=== PATIENT | female | born 1965 | race Caucasian/White ===

== ENCOUNTER 2017-05-05 15:10 | Emergency (ER) | payer BC ==
[~2017-05-05] VITALS: Ht 165.1 cm; Wt 145.0 kg
[2017-05-05] MEDS ORDERED: HYDROmorphone 1 mg/ml syringe IM ONE (15:25)
[2017-05-05] MEDS ORDERED: propofol 10mg/ml 20ml vial IV ONE (15:55)
[2017-05-05] MEDS ORDERED: HYDROmorphone inj. 0.5 MG/0.5 ML DISP.SYRIN IV ONE (16:25)
[2017-05-05] MEDS ORDERED: HYDR-565 PO (17:21)
[2017-05-05 18:00] VITALS: BP 149/79
== END 2017-05-05 17:45 | disposition home or self-care (01) ==
LOC: ER 15:10
DX: S43.084A Other dislocation of right shoulder joint, initial encounter (principal); S80.211A Abrasion, right knee, initial encounter; Z88.0 Allergy status to penicillin; Z88.8 Allergy status to other drugs, medicaments and biological substances; Z79.899 Other long term (current) drug therapy; W01.0XXA Fall on same level from slipping, tripping and stumbling without subsequent striking against object, initial encounter; Y93.89 Activity, other specified; Y92.89 Other specified places as the place of occurrence of the external cause; Y99.8 Other external cause status
CPT/HCPCS: 23650; 73020; 73030; 96372; 99152; 99285; A4565; J1170; J2704